=== PATIENT | female | born 1965 | race Caucasian/White ===

== ENCOUNTER 2017-02-27 17:50 | Inpatient (IN) | payer OTHER ==
[~2017-02-27] VITALS: Ht 172.7 cm; Wt 134.0 kg
[2017-02-27 17:52] VITALS: BP 159/77; PULSE 74; RESP 16; TEMP 98.3; O2SAT 98
--- NOTE | 2017-02-27 18:21 | PD ---
HPI Chief Complaint: Neuro Symptoms/ Deficits Time Seen by Provider: 18:15 Travel History International Travel<30 days: No Contact w/Intl Traveler<30days: No Traveled to known affect area: No History of Present Illness HPI 51yo F with PMH of MS and seizure disorder here with worsening gait today. States she uses a walker but worst today. States she woke up with this. Also felt her vision is worst for the last few days. Hard to focus. Denies any fever, chest pain, n/v, focal weakness or numbness. Pt follows with Dr. Leon and called his office and spoke to the nurse and told to come here. Pt also with chronic abdominal pain and has hysterectomy planned for endometriosis and fibroids. PFSH Past Medical History Asthma: Yes GERD: Yes Hiatal Hernia: Yes Neurologic: Yes (MS, epilepsy) Seizures: Yes Sleep Apnea: Yes (cpap) Influenza Vaccination: No ?: Not : 2 Past Surgical History Abdominal Surgery: Yes (umbilical ) Section: Yes Cholecystectomy: Yes Eye Surgery: Yes (lasik and cataracts) Neurologic Surgery: Yes (kyphoplasty) Tonsillectomy: Yes Social History Alcohol Use: No Tobacco Use: No Substance Use: No Allergies-Medications (Allergen,Severity, Reaction): Coded Allergies: No Known Allergies (Unverified , 02/27/17) Reported Meds & Prescriptions Reported Meds & Active Scripts Active Reported Zantac 75 (Ranitidine HCl) 75 Mg Tablet 75 Mg PO DAILY Ventolin Hfa 18 GM Inh (Albuterol Sulfate) 90 Mcg/Act Aer 2 Puff INH Q6H PRN Tecfidera (Dimethyl Fumarate) 240 Mg Cap 240 Mg PO BID Maxalt (Rizatriptan Benzoate) 10 Mg Tab 10 Mg PO DAILY PRN Restasis Opth 0.05% (Cyclosporine Opth 0.05%) 0.05% Emul 1 Drop EACH EYE BID Potassium 99 Mg Tablet 99 Mg PO HS Ditropan (Oxybutynin Chloride) 5 Mg Tab 5 Mg PO Q12HR Oxycodone (Oxycodone HCl) 30 Mg Tab 15-30 Mg PO Q6H PRN Omeprazole 40 Mg Cap 40 Mg PO BID Nabumetone 500 Mg Tab 500 Mg PO BID Metaxalone 800 Mg Tab 800 Mg PO TID Lyrica (Pregabalin) 200 Mg Cap 200 Mg PO BID Lorazepam 0.5 Mg Tab 0.5 Mg PO Q8H PRN Lamictal (Lamotrigine) 150 Mg Tab 150 Mg PO BID Soaszfeebm-Imumqtjxmytaf-Ptrixwlk 50-325-40 Mg Tab 1 Tab PO DAILY PRN Do not exceed 6 tablets/day. Erythromycin Opth Oint 5 Mg/Gm Oint 1 Applic EACH EYE HS Ambien (Zolpidem Tartrate) 5 Mg Tab 5 Mg PO HS Review of Systems Except as stated in HPI: all other systems reviewed are Neg Physical Exam Narrative GENERAL: 51yo F not in distress. SKIN: Focused skin assessment warm/dry. HEAD: Atraumatic. Normocephalic. EYES: Pupils equal and round at 4mm bilaterally. No scleral icterus. No injection or drainage. ENT: No nasal bleeding or discharge. Mucous membranes pink and moist. NECK: Trachea midline. No JVD. CARDIOVASCULAR: Regular rate and rhythm. No murmur appreciated. RESPIRATORY: No accessory muscle use. Clear to auscultation. Breath sounds equal bilaterally. GASTROINTESTINAL: Abdomen soft, non-tender, nondistended. Hepatic and splenic margins not palpable. MUSCULOSKELETAL: No obvious deformities. No clubbing. No cyanosis. No edema. NEUROLOGICAL: Awake and alert. Ataxic gait. EOMI. RLE weakness, unchanged from prior. Sensation equal bilaterally. PSYCHIATRIC: Appropriate mood and affect; insight and judgment normal. Data Data Last Documented VS Vital Signs Date Time Temp Pulse Resp B/P Pulse Ox O2 Delivery O2 Flow Rate FiO2 02/27/17 20:40 61 18 134/67 96 Room Air 02/27/17 17:52 98.3 Orders Methylprednisolone So Succ Inj (Solumedr (02/27/17 19:00) Mri Brain W&W/O Contrast (02/27/17 ) Complete Blood Count With Diff (02/27/17 18:50) Basic Metabolic Panel (Bmp) (02/27/17 18:50) Consult Neurology (02/27/17 ) (Hub Use Only)Inp Phy Cons/Ref (02/27/17 ) Gadodiamide Pf Inj (Omniscan Pf Inj) (02/27/17 20:12) Admit Order (Ed Use Only) (02/27/17 20:53) Labs Laboratory Tests Test 02/27/17 19:05 White Blood Count 2.9 TH/MM3 Red Blood Count 3.81 MIL/MM3 Hemoglobin 10.4 GM/DL Hematocrit 31.3 % Mean Corpuscular Volume 82.0 FL Mean Corpuscular Hemoglobin 27.4 PG Mean Corpuscular Hemoglobin 33.3 % Concent Red Cell Distribution Width 14.2 % Platelet Count 209 TH/MM3 Mean Platelet Volume 7.4 FL Neutrophils (%) (Auto) 69.9 % Lymphocytes (%) (Auto) 5.5 % Monocytes (%) (Auto) 12.2 % Eosinophils (%) (Auto) 12.1 % Basophils (%) (Auto) 0.3 % Neutrophils # (Auto) 2.0 TH/MM3 Lymphocytes # (Auto) 0.2 TH/MM3 Monocytes # (Auto) 0.4 TH/MM3 Eosinophils # (Auto) 0.4 TH/MM3 Basophils # (Auto) 0.0 TH/MM3 CBC Comment DIFF FINAL Differential Comment Sodium Level 143 MEQ/L Potassium Level 3.8 MEQ/L Chloride Level 108 MEQ/L Carbon Dioxide Level 28.4 MEQ/L Anion Gap 7 MEQ/L Blood Urea Nitrogen 8 MG/DL Creatinine 1.06 MG/DL Estimat Glomerular Filtration 55 ML/MIN Rate Random Glucose 104 MG/DL Calcium Level 8.7 MG/DL [facility] Medical Decision Making Medical Screen Exam Complete: Yes Emergency Medical Condition: Yes Differential Diagnosis MS exacerbation vs. CVA vs. intracranial mass Narrative Course 51yo F with symptoms consistent with MS exacerbation. I discussed with Dr. Abdalla who recommends IV methylprednisolone 250mg IV Q6 hours. Ordered first dose. Neurology consult placed. Sign out to next team to follow up labs, MRI and admit Diagnosis Primary Impression: Multiple sclerosis exacerbation Louisa Shaffer DO Feb 27, 2017 18:21
[2017-02-27] MEDS ORDERED: methylPREDNISolone SOD SUCC 125 MG/2 ML VIAL IVP ONE (19:00)
--- NOTE | 2017-02-27 19:06 | PD ---
Physical Exam Date Seen by Provider: Feb 27, 2017 Time Seen by Provider: 19:04 Narrative The patient is a 51-year-old female with a history of MS who presents with ataxia and difficulty with ambulation. The patient was initially evaluated by the previous physician, Dr. Shaffer, please refer to the initial history, physical, diagnostic evaluation, treatment modality plan. The previous physician spoke with the neurologist on-call, Dr. Lemon, who is covering for the patient's neurologist Dr. Leon. He recommends MRI and Solu-Medrol for 3 days divided 250 mg every 6 hours. The patient will be admitted to the medical service. Data Data Last Documented VS Vital Signs Date Time Temp Pulse Resp B/P Pulse Ox O2 Delivery O2 Flow Rate FiO2 02/27/17 20:40 61 18 134/67 96 Room Air 02/27/17 17:52 98.3 Orders Methylprednisolone So Succ Inj (Solumedr (02/27/17 19:00) Mri Brain W&W/O Contrast (02/27/17 ) Complete Blood Count With Diff (02/27/17 18:50) Basic Metabolic Panel (Bmp) (02/27/17 18:50) Consult Neurology (02/27/17 ) (Hub Use Only)Inp Phy Cons/Ref (02/27/17 ) Gadodiamide Pf Inj (Omniscan Pf Inj) (02/27/17 20:12) Admit Order (Ed Use Only) (02/27/17 20:53) Labs Laboratory Tests Test 02/27/17 19:05 White Blood Count 2.9 TH/MM3 Red Blood Count 3.81 MIL/MM3 Hemoglobin 10.4 GM/DL Hematocrit 31.3 % Mean Corpuscular Volume 82.0 FL Mean Corpuscular Hemoglobin 27.4 PG Mean Corpuscular Hemoglobin 33.3 % Concent Red Cell Distribution Width 14.2 % Platelet Count 209 TH/MM3 Mean Platelet Volume 7.4 FL Neutrophils (%) (Auto) 69.9 % Lymphocytes (%) (Auto) 5.5 % Monocytes (%) (Auto) 12.2 % Eosinophils (%) (Auto) 12.1 % Basophils (%) (Auto) 0.3 % Neutrophils # (Auto) 2.0 TH/MM3 Lymphocytes # (Auto) 0.2 TH/MM3 Monocytes # (Auto) 0.4 TH/MM3 Eosinophils # (Auto) 0.4 TH/MM3 Basophils # (Auto) 0.0 TH/MM3 CBC Comment DIFF FINAL Differential Comment Sodium Level 143 MEQ/L Potassium Level 3.8 MEQ/L Chloride Level 108 MEQ/L Carbon Dioxide Level 28.4 MEQ/L Anion Gap 7 MEQ/L Blood Urea Nitrogen 8 MG/DL Creatinine 1.06 MG/DL Estimat Glomerular Filtration 55 ML/MIN Rate Random Glucose 104 MG/DL Calcium Level 8.7 MG/DL [facility] Medical Record Reviewed: Yes Supervised Visit with SHERMAN: No Interpretation(s) Laboratory Tests Test 02/27/17 19:05 White Blood Count 2.9 TH/MM3 Red Blood Count 3.81 MIL/MM3 Hemoglobin 10.4 GM/DL Hematocrit 31.3 % Mean Corpuscular Volume 82.0 FL Mean Corpuscular Hemoglobin 27.4 PG Mean Corpuscular Hemoglobin 33.3 % Concent Red Cell Distribution Width 14.2 % Platelet Count 209 TH/MM3 Mean Platelet Volume 7.4 FL Neutrophils (%) (Auto) 69.9 % Lymphocytes (%) (Auto) 5.5 % Monocytes (%) (Auto) 12.2 % Eosinophils (%) (Auto) 12.1 % Basophils (%) (Auto) 0.3 % Neutrophils # (Auto) 2.0 TH/MM3 Lymphocytes # (Auto) 0.2 TH/MM3 Monocytes # (Auto) 0.4 TH/MM3 Eosinophils # (Auto) 0.4 TH/MM3 Basophils # (Auto) 0.0 TH/MM3 CBC Comment DIFF FINAL Differential Comment Sodium Level 143 MEQ/L Potassium Level 3.8 MEQ/L Chloride Level 108 MEQ/L Carbon Dioxide Level 28.4 MEQ/L Anion Gap 7 MEQ/L Blood Urea Nitrogen 8 MG/DL Creatinine 1.06 MG/DL Estimat Glomerular Filtration 55 ML/MIN Rate Random Glucose 104 MG/DL Calcium Level 8.7 MG/DL Last Impressions Brain MRI 02/27/17 0000 Signed Impressions: Service Date/Time: Monday, February 27, 2017 19:56 - CONCLUSION: 1. Minimal scattered periventricular and subcortical white matter signal abnormalities consistent with small vessel ischemic disease or demyelination. 2. No acute infarct, acute hemorrhage, mass effect, extra axial fluid collection or abnormal enhancing mass lesion. Alfredito Santana MD Differential Diagnosis Differential diagnosis includes MS exacerbation, CVA, brain stem infarct, hemorrhage, hyponatremia, hypocalcemia. Narrative Course The patient was initially evaluated by the previous physician, Dr. Shaffer. Please refer to the initial history, physical, diagnostic evaluation, treatment modality plan. The patient was signed out at 7 PM with MRI and laboratory evaluation pending. The patient will be admitted for MS exacerbation for Solu- Medrol 2050 mg every 6 hours for 3 days, total of 1 g daily for 3 days. MRI was noted. Labs were noted. The on-call medical service was paged for admission. Physician Communication Physician Communication The on-call medical service was paged for admission. I discussed the patient with Dr. Saba who agrees with admission. Diagnosis Primary Impression: Multiple sclerosis exacerbation Admitting Information Admitting Physician Requests: Admit Condition: Stable Ugo Reza MD Feb 27, 2017 19:06
[2017-02-27] MEDS ORDERED: DIME240C PO (19:07)
[2017-02-27] MEDS ORDERED: OMEP40CA2 PO (19:07)
[2017-02-27] MEDS ORDERED: OXYB5TAB10 PO (19:07)
[2017-02-27] MEDS ORDERED: LAMO150 PO (19:07)
[2017-02-27] MEDS ORDERED: MAXA10TA2 PO (19:07)
[2017-02-27] MEDS ORDERED: LYRI200C PO (19:07)
[2017-02-27] MEDS ORDERED: AMBI5TAB PO (19:07)
[2017-02-27] MEDS ORDERED: LORA-373 PO (19:07)
[2017-02-27] MEDS ORDERED: VENTAER INH (19:07)
[2017-02-27] MEDS ORDERED: META1TAB19 PO (19:07)
[2017-02-27] MEDS ORDERED: OXYC30TA PO (19:07)
[2017-02-27] MEDS ORDERED: ZANTTAB11 PO (19:07)
[2017-02-27] MEDS ORDERED: ERYTOIN10 EACH EYE (19:07)
[2017-02-27] MEDS ORDERED: REST0.05 EACH EYE (19:07)
[2017-02-27] MEDS ORDERED: POTA99TA4 PO (19:07)
[2017-02-27] MEDS ORDERED: NABU1TAB37 PO (19:07)
[2017-02-27] MEDS ORDERED: BUTATAB6 PO (19:07)
[2017-02-27 19:25] LABS: BASOPHIL % 0.3 % (0.0-2.0); EOSINOPHIL # 0.4 TH/MM3 (0-0.4); EOSINOPHIL % 12.1 % (0.0-4.0); HEMATOCRIT 31.3 % (35.0-46.0); HEMO FLAGS DIFF FINAL; LYMPH % 5.5 % (9.0-44.0); LYMPHOCYTE # 0.2 TH/MM3 (1.0-4.8); MEAN CORPUSCULAR HEMOGLOBIN 27.4 PG (27.0-34.0); MEAN CORPUSCULAR HGB CONC 33.3 % (32.0-36.0); MONO % 12.2 % (0.0-8.0); NEUT % 69.9 % (16.0-70.0); PLATELET COUNT 209 TH/MM3 (150-450); RED BLOOD COUNT 3.81 MIL/MM3 (4.00-5.30); RED CELL DISTRIBUTION WIDTH 14.2 % (11.6-17.2); WHITE BLOOD COUNT 2.9 TH/MM3 (4.0-11.0)
[2017-02-27 19:46] LABS: BICARBONATE 28.4 MEQ/L (21.0-32.0); POTASSIUM 3.8 MEQ/L (3.5-5.1)
[2017-02-27] MEDS ORDERED: GADODIAMIDE PF 287 MG/ML 20 ML VIAL (for RAD MRI) IV ONE (20:12)
--- NOTE | 2017-02-27 20:38 | RADRPT ---
EXAM DATE/TIME: 02/27/2017 19:56 [facility] COMPARISON: No previous studies available for comparison. INDICATIONS : Multiple sclerosis. Dizziness. Tunnel vision. CONTRAST: 20 cc Omniscan (gadodiamide) IV MEDICAL HISTORY : Multiple sclerosis. Gastroesophageal reflux disease. Seizures. SURGICAL HISTORY : section. Orthopedic. ENCOUNTER: Initial ACUITY: 1 day PAIN SCORE: 0/10 LOCATION: cranial TECHNIQUE: Multiplanar, multisequence MRI of the brain was performed both prior to and following the administrat ion of paramagnetic contrast. FINDINGS: CEREBRUM: The ventricles are normal for age. No evidence of midline shift, mass lesion, hemorrhage or acute in farction. No extraaxial fluid collections are seen. The pituitary gland and suprasellar cistern are normal in configuration. WHITE MATTER: Minimal scattered periventricular and subcortical white matter signal abnormalities are noted consist ent with small vessel ischemic disease or demyelination. POSTERIOR FOSSA: The cerebellum and brainstem are intact. The 4th ventricle is midline. The cerebellopontine angle is unremarkable. The cerebellar tonsils are normal in position. DIFFUSION IMAGING: No focal areas of restricted diffusion are seen. No evidence of acute infarction. EXTRACRANIAL: The visualized portions of the orbits and paranasal sinuses are unremarkable. POST-CONTRAST: No abnormal areas of parenchymal or dural enhancement. No evidence of blood-brain barrier breakdown. CONCLUSION: 1. Minimal scattered periventricular and subcortical white matter signal abnormalities consistent wit h small vessel ischemic disease or demyelination. 2. No acute infarct, acute hemorrhage, mass effect, extra axial fluid collection or abnormal enhancin g mass lesion. Alfredito Santana MD on February 27, 2017 at 20:32 Board Certified Radiologist. This report was verified electronically.
[2017-02-27 20:40] VITALS: BP 134/67; PULSE 61; RESP 18; O2SAT 96
--- NOTE | 2017-02-27 20:59 | HHI.HP ---
[facility]Staff Admission Diagnosis multiple sclerosis exacerbation, ataxia Diagnoses: (1) Multiple sclerosis exacerbation Diagnosis: Principal (2) Generalized pain Diagnosis: Principal (3) Renal insufficiency Diagnosis: Principal (4) HTN (hypertension) Diagnosis: Principal Travel History International Travel<30 Days: No Contact w/Intl Traveler <30 Da: No Traveled to Known Affected Are: No History of Present Illness This is a 51-year-old female with a PMH of Multiple Sclerosis and Seizure Disorder who presented to the ER with complaints of unsteady gait and visual changes x2 days consistent w/ her MS flares. Follows w/ Dr. Leon, called office and was told to go to ER for further evaluation. On arrival, BP 159/77, HR 74, O2 sat 98% on RA, Afebrile. WBC 2.9. Hemoglobin 10.4. Creatinine 1.06 , no previous labs for comparison. MRI Brain with minimal scattered periventricular and subcortical white matter signal abnormalities consistent with small vessel ischemia or demyelinization, no acute findings. Dr. Sussy reno consulted by ER physician, recommended high-dose steroid therapy with Solu- Medrol 250mg IV q6h and will eval in am. Review of Systems Except as stated in HPI: all other systems reviewed are Neg ROS: 14 point review of systems otherwise negative. Past Family Social History Past Medical History PMH: Multiple Sclerosis and Seizure Disorder Past Surgical History PAST SURGICAL HISTORY: Cholecystectomy, Cataract Surgery, Kyphoplasty , Tonsillectomy, Umbilical Surgery Allergies: Coded Allergies: No Known Allergies (Unverified , 02/27/17) Family History PAST FAMILY HISTORY: Reviewed. No h/o DM or CAD Social History PAST SOCIAL HISTORY: Negative for alcohol, tobacco or drugs. Physical Exam Vital Signs Vital Signs Date Time Temp Pulse Resp B/P Pulse Ox O2 Delivery O2 Flow Rate FiO2 02/27/17 20:40 61 18 134/67 96 Room Air 02/27/17 17:52 98.3 74 16 159/77 98 Physical Exam PE: GENERAL: Pleasant middle-aged white female in no acute distress. HEENT: PERRLA, EOMI. No scleral icterus or conjunctival pallor. No lid lag or facial droop. CARDIOVASCULAR: Regular rate and rhythm. No obvious murmurs to auscultation. No chest tenderness to palpation. RESPIRATORY: No obvious rhonchi or wheezing. Clear to auscultation. Breath sounds equal bilaterally. GASTROINTESTINAL: Abdomen soft, non-tender, nondistended. BS normal. MUSCULOSKELETAL: Extremities without clubbing, cyanosis, or edema. No obvious deformities. NEUROLOGICAL: Awake, alert and oriented x4. No focal neurologic deficits. Moving both upper and lower extremities spontaneously. Laboratory Laboratory Tests Test 02/27/17 19:05 White Blood Count 2.9 Red Blood Count 3.81 Hemoglobin 10.4 Hematocrit 31.3 Mean Corpuscular Volume 82.0 Mean Corpuscular Hemoglobin 27.4 Mean Corpuscular Hemoglobin 33.3 Concent Red Cell Distribution Width 14.2 Platelet Count 209 Mean Platelet Volume 7.4 Neutrophils (%) (Auto) 69.9 Lymphocytes (%) (Auto) 5.5 Monocytes (%) (Auto) 12.2 Eosinophils (%) (Auto) 12.1 Basophils (%) (Auto) 0.3 Neutrophils # (Auto) 2.0 Lymphocytes # (Auto) 0.2 Monocytes # (Auto) 0.4 Eosinophils # (Auto) 0.4 Basophils # (Auto) 0.0 CBC Comment DIFF FINAL Differential Comment Sodium Level 143 Potassium Level 3.8 Chloride Level 108 Carbon Dioxide Level 28.4 Anion Gap 7 Blood Urea Nitrogen 8 Creatinine 1.06 Estimat Glomerular Filtration 55 Rate Random Glucose 104 Calcium Level 8.7 Result Diagram: 02/27/17190402/27/171904 Assessment and Plan Problem List: (1) Multiple sclerosis exacerbation ICD Code: G35 Status: Acute (2) Generalized pain ICD Code: R52 Status: Acute (3) Renal insufficiency ICD Code: N28.9 Status: Acute (4) HTN (hypertension) ICD Code: I10 Status: Acute Assessment and Plan A/P: 1. MS: w/ Acute Flare, follows w/ Dr. Leon as outpatient, Dr. Lemon consulted by ER physician, recommended high-dose steroid therapy with Solu- Medrol 250mg IV q6h. MRI Brain scattered periventricular white matter signal abnormalities consistent with small vessel ischemia or demyelination, no acute findings, images reviewed by me. 2. Generalized Pain: secondary to above. Resume home medications, analgesics as needed. 3. Renal Insufficiency: Mild. Creatinine 1.06, no previous labs for comparison, IVF for hydration, repeat labs in am. 4. HTN: BP 150-170's, likely compounded by pain complaints. Will monitor. 5. DVT Prophylaxis: SCD/Teds. 6. Social work for d/c planning as needed. 7. Case discussed w/ ER physician at length. Physician Certification 2 Midnight Certification Type: Admission for Inpatient Services Order for Inpatient Services The services are ordered in accordance with Medicare regulations or non- Medicare payer requirements, as applicable. In the case of services not specified as inpatient-only, they are appropriately provided as inpatient services in accordance with the 2-midnight benchmark. Estimated LOS (days): 2 days is the estimated time the patient will need to remain in the hospital, assuming treatment plan goals are met and no additional complications. Post-Hospital Plan: Not yet determined Shea Saba MD Feb 27, 2017 20:59
[2017-02-27] MEDS ORDERED: ACETAMIN 325 MG/BUTALBITAL 50 MG/CAFFEINE 40 MG TAB PO PRN (21:00)
[2017-02-27] MEDS: DOCUSATE SODIUM 50 MG/SENNA 8.6 MG TAB PO SCH (21:00)
[2017-02-27] MEDS ORDERED: LORazepam 0.5 MG TAB PO PRN (21:00)
[2017-02-27] MEDS ORDERED: BISACODYL 10 MG SUPP RECTAL PRN (21:00)
[2017-02-27] MEDS ORDERED: MAGNESIUM HYDROXIDE SUSP 30 ML CUP PO PRN (21:00)
[2017-02-27] MEDS ORDERED: SODIUM CHLORIDE 0.9% FLUSH 10 ML FLUSH IV FLUSH PRN (21:00)
[2017-02-27] MEDS ORDERED: ALBUTEROL SULFATE 90 MCG/ACT HFA 8 GM INHALER INH PRN (21:00)
[2017-02-27] MEDS: ERYTHROMYCIN 0.5% OPTH OINT 3.5 GM TUBO EACH EYE SCH (21:00)
[2017-02-27] MEDS ORDERED: MORPHINE SULFATE 4 MG/ML INJ IV PRN (21:00)
[2017-02-27] MEDS ORDERED: ACETAMINOPHEN 325 MG TAB PO PRN (21:00)
[2017-02-27] MEDS ORDERED: ONDANSETRON HCL 4 MG/2 ML VIAL IVP PRN (21:00)
[2017-02-27] MEDS ORDERED: SENNOSIDES 8.6 MG TAB PO PRN (21:00)
[2017-02-27] MEDS ORDERED: LACTULOSE SYRUP 20 GM/30 ML CUP PO PRN (21:00)
[2017-02-27] MEDS: SODIUM CHLORIDE 0.9% FLUSH 10 ML FLUSH IV FLUSH SCH (21:05)
[2017-02-27] MEDS: SODIUM CHLOR 0.9% 1000 ML INJ 1,000 ML IV SCH (21:06)
[2017-02-27] MEDS: PREGABALIN 100 MG CAP PO SCH (21:12)
[2017-02-27] MEDS ORDERED: ALBUTEROL SULFATE 90 MCG/ACT HFA 18 GM INHALER INH PRN (21:30)
[2017-02-27 21:51] VITALS: BP 171/94; PULSE 63; RESP 18; TEMP 97.9; O2SAT 99
[2017-02-27] MEDS ORDERED: CYCLOSPORINE OPTH 0.05% EACH EYE SCH (22:00)
[2017-02-27] MEDS ORDERED: DIMETHYL FUMARATE 240 MG PO SCH (22:00)
[2017-02-27] MEDS: PANTOPRAZOLE SOD 40 MG DELAYED RELEASE TAB PO SCH (22:26)
[2017-02-27] MEDS: lamoTRIgine 100 MG TAB PO SCH (22:26)
[2017-02-27] MEDS: OXYBUTYNIN CHLORIDE 5 MG TAB PO SCH (22:26)
[2017-02-27] MEDS: NABUMETONE 500 MG TAB PO SCH (22:30)
[2017-02-27] MEDS: ZOLPIDEM TARTRATE 5 MG TAB PO SCH (23:40)
[2017-02-27] MEDS: METAXALONE 800 MG TAB PO PRN (23:41)
[2017-02-28] MEDS: SODIUM CHLOR 0.9% 1000 ML INJ 1,000 ML IV SCH ×2 (01:18→01:27)
[2017-02-28] MEDS: methylPREDNISolone SOD SUCC 125 MG/2 ML VIAL IV PUSH SCH ×4 (01:18→17:50)
[2017-02-28 04:17] VITALS: BP 142/73; PULSE 60; RESP 16; TEMP 98; O2SAT 95
[2017-02-28] MEDS: METAXALONE 800 MG TAB PO PRN ×2 (06:29→21:27)
[2017-02-28 07:02] LABS: AUTOMATED NEUTROPHIL # 4.4 TH/MM3 (1.8-7.7); EOSINOPHIL % 0.1 % (0.0-4.0); HEMATOCRIT 33.3 % (35.0-46.0); HEMO FLAGS DIFF FINAL; LYMPH % 2.9 % (9.0-44.0); LYMPHOCYTE # 0.1 TH/MM3 (1.0-4.8); MEAN CELL VOLUME 80.5 FL (80.0-100.0); MEAN CORPUSCULAR HEMOGLOBIN 27.2 PG (27.0-34.0); MEAN CORPUSCULAR HGB CONC 33.8 % (32.0-36.0); MONO % 1.2 % (0.0-8.0); NEUT % 95.8 % (16.0-70.0); PLATELET COUNT 217 TH/MM3 (150-450); RED BLOOD COUNT 4.14 MIL/MM3 (4.00-5.30); WHITE BLOOD COUNT 4.6 TH/MM3 (4.0-11.0)
[2017-02-28 07:17] LABS: ALT (GPT) 42 U/L (10-53); ANION GAP 6 MEQ/L (5-15); AST (GOT) 31 U/L (15-37); BICARBONATE 29.2 MEQ/L (21.0-32.0); BLOOD UREA NITROGEN 10 MG/DL (7-18); CHLORIDE 110 MEQ/L (98-107); GLOMERULAR FILTRATION RATE 66 ML/MIN (>89); POTASSIUM 4.3 MEQ/L (3.5-5.1); SODIUM (NA) 145 MEQ/L (136-145)
[2017-02-28 07:20] LABS: ALKALINE PHOSPHATASE 126 U/L (45-117); TOTAL BILIRUBIN ADULT 0.2 MG/DL (0.2-1.0)
[2017-02-28] MEDS ORDERED: GADODIAMIDE PF 287 MG/ML 20 ML VIAL (for RAD MRI) IV ONE (07:40)
[2017-02-28 08:30] VITALS: BP 141/70; PULSE 57; RESP 18; TEMP 98.6; O2SAT 95
[2017-02-28] MEDS: lamoTRIgine 100 MG TAB PO SCH ×2 (08:54→19:47)
[2017-02-28] MEDS: NABUMETONE 500 MG TAB PO SCH ×2 (08:54→19:51)
[2017-02-28] MEDS: PREGABALIN 100 MG CAP PO SCH ×2 (08:55→19:49)
[2017-02-28] MEDS: OXYBUTYNIN CHLORIDE 5 MG TAB PO SCH ×2 (08:56→19:49)
[2017-02-28] MEDS: DOCUSATE SODIUM 50 MG/SENNA 8.6 MG TAB PO SCH ×2 (08:57→19:51)
[2017-02-28] MEDS: PANTOPRAZOLE SOD 40 MG DELAYED RELEASE TAB PO SCH ×2 (09:00→19:48)
[2017-02-28] MEDS: SODIUM CHLORIDE 0.9% FLUSH 10 ML FLUSH IV FLUSH SCH ×2 (09:00→19:50)
[2017-02-28] MEDS ORDERED: METAXALONE 800 MG TAB PO SCH (09:00)
--- NOTE | 2017-02-28 09:07 | PD.CONS ---
History of Present Illness Service Neurology Consult Requested By er Reason for Consult weakness Primary Care Physician Non-Staff History of Present Illness 51-year-old female with a PMH of Multiple Sclerosis and Seizure Disorder? who presented to the ER with complaints of unsteady gait and visual changes x2 days consistent w/ her MS flares. vision has been blurry and legs feel weak. no pain with eye movement. Follows with Dr. Leon in our office. takes tecfidera. has tolerated prednisone in the past. has been using a cane. has chronic pain and anxiety for which she takes ativan and opiods. apparently has had symptoms cince 2003 and has been to . dx was elusive but over the years but firmed up recently by her previous neurologist in [facility]. she is now on disability. lives with her and son. she does not drive. Review of Systems Except as stated in HPI: all other systems reviewed are Neg Past Family Social History Past Medical History PMH: Multiple Sclerosis and Seizure Disorder Past Surgical History PAST SURGICAL HISTORY: Cholecystectomy, Cataract Surgery, Kyphoplasty , Tonsillectomy, Umbilical Surgery Allergies: Coded Allergies: No Known Allergies (Unverified , 02/27/17) Family History PAST FAMILY HISTORY: Reviewed. No h/o DM or CAD Social History PAST SOCIAL HISTORY: Negative for alcohol, tobacco or drugs. Review of Systems All other ROS: ROS reviewed as documented in chart Past Family Social History Allergies: Coded Allergies: No Known Allergies (Unverified , 02/27/17) Active Ordered Medications Current Medications Medications (Trade) Dose Ordered Sig/Dominic Route Start Time Stop Time Status Last Admin Methylprednisolone Sodium Succinate 250 mg 250 mg Q6H IV PUSH 02/28/17 01:00 02/28/17 06:22 (NS 1000 ml Inj) 1,000 ml @ 100 mls/hr Q10H IV 02/27/17 21:00 02/28/17 01:18 (NS Flush) 2 ml UNSCH PRN IV FLUSH 02/27/17 21:00 (NS Flush) 2 ml BID IV FLUSH 02/27/17 21:00 02/27/17 21:05 (Zofran Inj) 4 mg Q6H PRN IVP 02/27/17 21:00 (Tylenol) 650 mg Q6H PRN PO 02/27/17 21:00 (Morphine Inj) 2 mg Q3H PRN IV 02/27/17 21:00 (Roxicodone) 5 mg Q4H PRN PO 02/27/17 21:00 02/28/17 06:28 (Yumiko-Colace) 1 tab BID PO 02/27/17 21:00 02/28/17 08:57 (Milk Of Magnesia Liq) 30 ml Q12H PRN PO 02/27/17 21:00 (Senokot) 17.2 mg Q12H PRN PO 02/27/17 21:00 (Dulcolax Supp) 10 mg DAILY PRN RECTAL 02/27/17 21:00 (Lactulose Liq) 30 ml DAILY PRN PO 02/27/17 21:00 (Fioricet 325-50-40) 1 tab DAILY PRN PO 02/27/17 21:00 (Ilotycin 0.5% Opth Oint) 1 applic HS EACH EYE 02/27/17 21:00 (LaMICtal) 150 mg BID PO 02/27/17 21:00 02/28/17 08:54 (Ativan) 0.5 mg Q8H PRN PO 02/27/17 21:00 (Relafen) 500 mg BID PO 02/27/17 21:00 02/28/17 08:54 (Ditropan) 5 mg Q12HR PO 02/27/17 21:00 02/28/17 08:56 (Lyrica) 200 mg BID PO 02/27/17 21:00 02/28/17 08:55 (Ambien) 5 mg HS PO 02/27/17 21:00 02/27/17 23:40 Patient Own Medication PT OWN MED: Cyclosporine Opth 0.... BID EACH EYE 02/27/17 22:00 Hold Patient Own Medication PT OWN MED: Dimet... BID PO 02/27/17 22:00 Hold (Protonix) 40 mg BID PO 02/27/17 22:00 02/28/17 09:00 (Ventolin Hfa Inh) 2 puff Q6H PRN INH 02/27/17 21:30 (Skelaxin) 800 mg TID PRN PO 02/27/17 23:15 02/28/17 06:29 Exam I&O / VS 02/27/17 02/27/17 02/28/17 15:00 23:00 07:00 Intake Total 509 ml Balance 509 ml Intake IV Total 509 ml # Voids 1 # Bowel Movements 0 Vital Signs Date Time Temp Pulse Resp B/P Pulse Ox O2 Delivery O2 Flow Rate FiO2 02/28/17 08:30 98.6 57 18 141/70 95 02/28/17 07:30 16 02/28/17 04:17 98.0 60 16 142/73 95 02/27/17 21:51 97.9 63 18 171/94 99 02/27/17 20:40 61 18 134/67 96 Room Air 02/27/17 17:52 98.3 74 16 159/77 98 General: Alert and Oriented, No acute distress Eye: EOMI Respiratory: Non-labored respirations Neurologic: Alert, Oriented Psychiatric: Cooperative, Appropriate mood & affect, Normal judgement, Non- suicidal Exam Comments alert, obese, ox 3, follows, no aphasia, eomi, vff grossly full, ou 3-2mm, face sym, mild yen le proximal weakness rt>left but able to lift all 4 ext to gravity , mild increased tone in rt, rt hemisensory, no clonus, planter flexor, gait not assessed 2/2 fall risk, Review/Management Diagnosis/Plan: (1) Multiple sclerosis exacerbation Plan: possible mri brain/c/t spine recs iv solumedrol x 3 days may need inpt rehab p.t. wt loss outpatient f/u after tx (2) HTN (hypertension) Plan: bp control (3) Generalized pain Plan: on chronic opiods (4) Anxiety Plan: on benzo's Problem Qualifiers (1) HTN (hypertension): Qualified Code: I10 - Essential hypertension Elia Lemon MD Feb 28, 2017 09:07
--- NOTE | 2017-02-28 09:17 | HHI.PR ---
Subjective Remarks Follow-up for MS exacerbation Patient stated that her foggy and has improved. She also stated that she is less lethargic. Patient is slow to answer questions. Otherwise she has no other complaints. No focal neurological deficits. Denied any headache. Objective Vitals Vital Signs Date Time Temp Pulse Resp B/P Pulse Ox O2 Delivery O2 Flow Rate FiO2 02/28/17 08:30 98.6 57 18 141/70 95 02/28/17 07:30 16 02/28/17 04:17 98.0 60 16 142/73 95 02/27/17 21:51 97.9 63 18 171/94 99 02/27/17 20:40 61 18 134/67 96 Room Air 02/27/17 17:52 98.3 74 16 159/77 98 I/O 02/27/17 02/27/17 02/27/17 02/28/17 02/28/17 02/28/17 07:00 15:00 23:00 07:00 15:00 23:00 Intake Total 509 ml Balance 509 ml Intake IV Total 509 ml # Voids 1 # Bowel Movements 0 Result Diagram: 02/28/17 0631 02/28/17 0631 Imaging Last Impressions Brain MRI 02/27/17 0000 Signed Impressions: Service Date/Time: Monday, February 27, 2017 19:56 - CONCLUSION: 1. Minimal scattered periventricular and subcortical white matter signal abnormalities consistent with small vessel ischemic disease or demyelination. 2. No acute infarct, acute hemorrhage, mass effect, extra axial fluid collection or abnormal enhancing mass lesion. Alfredito Santana MD Objective Remarks GENERAL: in NAD CARDIOVASCULAR: Regular rate and rhythm without murmurs, gallops, or rubs. RESPIRATORY: Breath sounds equal bilaterally. No accessory muscle use. GASTROINTESTINAL: Abdomen soft, non-tender, nondistended. MUSCULOSKELETAL: No cyanosis, or edema. BACK: Nontender without obvious deformity. No CVA tenderness. NEURO: AAO X 3 but slow to respond. motor and sensation grossly intact. Medications and IVs Current Medications Methylprednisolone Sodium Succinate (SoluMEDROL INJ) 250 mg ONCE ONCE IVP Last administered on 02/27/17t 19:11; Start 02/27/17 at 19:00; Stop 02/27/17 at 19:01; Status DC Gadodiamide (Omniscan Pf Inj) 20 ml STK-MED ONCE IV Last administered on 20:12; Start 02/27/17 at 20:12; Stop 02/27/17 at 20:13; Status DC Methylprednisolone Sodium Succinate 250 mg 250 mg Q6H IV PUSH Last administered on 02/28/17 06:22; Start 02/28/17 at 01:00 Sodium Chloride (NS 1000 ml Inj) 1,000 ml @ 100 mls/hr Q10H IV Last administered on 02/28/17 01:18; Start 02/27/17 at 21:00 Sodium Chloride (NS Flush) 2 ml UNSCH PRN IV FLUSH FLUSH AFTER USING IV ACCESS ; Start 02/27/17 at 21:00 Sodium Chloride (NS Flush) 2 ml BID IV FLUSH Last administered on 02/27/17 21: 05; Start 02/27/17 at 21:00 Ondansetron HCl (Zofran Inj) 4 mg Q6H PRN IVP NAUSEA OR VOMITING; Start at 21:00 Acetaminophen (Tylenol) 650 mg Q6H PRN PO FEVER/PAIN SCALE 1 TO 2; Start at 21:00 Morphine Sulfate (Morphine Inj) 2 mg Q3H PRN IV Pain 6-10; Start 02/27/17 at 21 :00 Oxycodone HCl (Roxicodone) 5 mg Q4H PRN PO PAIN SCALE 3 TO 5 Last administered on 02/28/17 06:28; Start 02/27/17 at 21:00 Senna/Docusate Sodium (Yumiko-Colace) 1 tab BID PO Last administered on 08:57; Start 02/27/17 at 21:00 Magnesium Hydroxide (Milk Of Magnesia Liq) 30 ml Q12H PRN PO MILD - MODERATE CONSTIPATION; Start 02/27/17 at 21:00 Sennosides (Senokot) 17.2 mg Q12H PRN PO MODERATE - SEVERE CONSTIPATION; Start 02/27/17 at 21:00 Bisacodyl (Dulcolax Supp) 10 mg DAILY PRN RECTAL SEVERE CONSITIPATION; Start at 21:00 Lactulose (Lactulose Liq) 30 ml DAILY PRN PO SEVERE CONSITIPATION; Start at 21:00 Albuterol Sulfate (Proair Hfa Inh) 2 puff Q6H PRN INH SHORTNESS OF BREATH; Start 02/27/17 at 21:00; Stop 02/27/17 at 21:21; Status DC Acetaminophen/ Butalbital/ Caffeine (Fioricet 325-50-40) 1 tab DAILY PRN PO HEADACHE; Start 02/27/17 at 21:00 Erythromycin (Ilotycin 0.5% Opth Oint) 1 applic HS EACH EYE ; Start 02/27/17 at 21:00 Lamotrigine (LaMICtal) 150 mg BID PO Last administered on 02/28/17 08:54; Start 02/27/17 at 21:00 Lorazepam (Ativan) 0.5 mg Q8H PRN PO ANXIETY; Start 02/27/17 at 21:00 Metaxalone (Skelaxin) 800 mg TID PO ; Start 02/28/17 at 09:00; Stop 02/28/17 at 09:00; Status DC Nabumetone (Relafen) 500 mg BID PO Last administered on 02/28/17 08:54; Start 02/27/17 at 21:00 Oxybutynin Chloride (Ditropan) 5 mg Q12HR PO Last administered on 02/28/17 08: 56; Start 02/27/17 at 21:00 Pregabalin (Lyrica) 200 mg BID PO Last administered on 02/28/17 08:55; Start 02/27/17 at 21:00 Zolpidem Tartrate (Ambien) 5 mg HS PO Last administered on 02/27/17 23:40; Start 02/27/17 at 21:00 Patient Own Medication PT OWN MED: Cyclosporine Opth 0.... BID EACH EYE ; Start 02/27/17 at 22:00; Status Hold Patient Own Medication PT OWN MED: Dimet... BID PO ; Start 02/27/17 at 22:00; Status Hold Pantoprazole Sodium (Protonix) 40 mg BID PO Last administered on 02/28/17 09: 00; Start 02/27/17 at 22:00 Albuterol Sulfate (Ventolin Hfa Inh) 2 puff Q6H PRN INH SHORTNESS OF BREATH; Start 02/27/17 at 21:30 Metaxalone (Skelaxin) 800 mg TID PRN PO MUSCLE SPASM Last administered on 06:29; Start 02/27/17 at 23:15 Gadodiamide (Omniscan Pf Inj) 20 ml STK-MED ONCE IV Last administered on 07:40; Start 02/28/17 at 07:40; Stop 02/28/17 at 07:41; Status DC A/P Problem List: (1) Multiple sclerosis exacerbation ICD Code: G35 Status: Acute (2) Generalized pain ICD Code: R52 Status: Acute (3) Renal insufficiency ICD Code: N28.9 Status: Acute (4) HTN (hypertension) ICD Code: I10 Status: Acute Assessment and Plan MS exacerbation: follows w/ Dr. Leon as outpatient - Dr. Lemon consulted ff - MRI Brain scattered periventricular white matter signal abnormalities consistent with small vessel ischemia or demyelination, no acute findings. Pending MRI of the cervical thoracic spine report. -Per neurologist continue with Solu-Medrol 250mg IV q6h for 3 days. Generalized Pain: secondary to above. -Improving. home medications resumed. Renal Insufficiency: Mild. Creatinine 1.06. -Improved. GFR 66. -Encourage fluid intake. HTN: BP 150-170's, likely compounded by pain complaints. -Improved. -Continue to monitor. DVT Prophylaxis: SCD/Teds. Discharge Planning Patient will require at least 3 days of IV steroids and possible discharged to SNF. Problem Qualifiers (1) HTN (hypertension): Qualified Code: I10 - Essential hypertension Yvonne Wade MD Feb 28, 2017 09:17
--- NOTE | 2017-02-28 09:28 | RADRPT ---
EXAM DATE/TIME: 02/28/2017 07:19 [facility] COMPARISON: No previous studies available for comparison. INDICATIONS : Mulitple sclerosis. CONTRAST: 20 cc Omniscan (gadodiamide) IV MEDICAL HISTORY : Multiple sclerosis. Gastroesophageal reflux disease. SURGICAL HISTORY : section. Orthopedic. ENCOUNTER: Subsequent ACUITY: 2 day PAIN SCORE: 0/10 LOCATION: [facility] TECHNIQUE: Multiplanar multisequence MRI of the thoracic spine was performed. FINDINGS: VERTEBRA: Normal vertebral body height. Homogeneous marrow signal. There is an old compression fracture at L1. ALIGNMENT: Normal. CORD: Normal position and configuration. POST CONTRAST: No abnormal areas of contrast enhancement seen. T1-T2: Normal. T2-T3: The thecal sac has a normal diameter. No evidence of disc bulge or protrusion. T3-T4: The thecal sac has a normal diameter. No evidence of disc bulge or protrusion. T4-T5: The thecal sac has a normal diameter. No evidence of disc bulge or protrusion. T5-T6: The thecal sac has a normal diameter. No evidence of disc bulge or protrusion. T6-T7: The thecal sac has a normal diameter. No evidence of disc bulge or protrusion. T7-T8: The thecal sac has a normal diameter. No evidence of disc bulge or protrusion. T8-T9: The thecal sac has a normal diameter. No evidence of disc bulge or protrusion. T9-T10: The thecal sac has a normal diameter. No evidence of disc bulge or protrusion. T10-T11: The thecal sac has a normal diameter. No evidence of disc bulge or protrusion. T11-T12: The thecal sac has a normal diameter. No evidence of disc bulge or protrusion. T12-L1: The thecal sac has a normal diameter. No evidence of disc bulge or protrusion. CONCLUSION: 1. Unremarkable MRI of the thoracic spine for patient's age. 2. Old wedge compression fracture L1. 3. No abnormal signal changes in the spinal cord. Nacho Romero MD on February 28, 2017 at 9:22 Board Certified Radiologist. This report was verified electronically.
--- NOTE | 2017-02-28 09:31 | RADRPT ---
EXAM DATE/TIME: 02/28/2017 07:19 [facility] COMPARISON: No previous studies available for comparison. INDICATIONS : Mulitple sclerosis. CONTRAST: 20 cc Omniscan (gadodiamide) IV MEDICAL HISTORY : Gastroesophageal reflux disease. Multiple sclerosis. SURGICAL HISTORY : section. Orthopedic. ENCOUNTER: Subsequent ACUITY: 2 day PAIN SCORE: 0/10 LOCATION: [facility] TECHNIQUE: Multiplanar, multisequence MRI examination of the cervical spine was performed. FINDINGS: VERTEBRAE: Normal vertebral body height. Homogeneous marrow signal. ALIGNMENT: No evidence of subluxation. CORD: Normal configuration and signal. POST FOSSA: The cerebellar tonsils are normal in position. POST-CONTRAST: No abnormal areas of enhancement are seen. C2-C3: The thecal sac has a normal configuration. There is no evidence of disc herniation or spinal canal stenosis. The neural foramina are patent bilaterally. C3-C4: The thecal sac has a normal configuration. There is no evidence of disc herniation or spinal canal s tenosis. The neural foramina are patent bilaterally. C4-C5: The thecal sac has a normal configuration. There is no evidence of disc herniation or spinal canal s tenosis. The neural foramina are patent bilaterally. C5-C6: Mild broad-based and central bulging. The neural foramina are patent bilaterally. C6-C7: The thecal sac has a normal configuration. There is no evidence of disc herniation or spinal canal s tenosis. The neural foramina are patent bilaterally. C7-T1: The thecal sac has a normal configuration. There is no evidence of disc herniation or spinal canal s tenosis. The neural foramina are patent bilaterally. CONCLUSION: 1. Mild broad-based and central bulging at C5-6. 2. Otherwise, unremarkable MR cervical spine for patient's age. Nacho Romero MD on February 28, 2017 at 9:25 Board Certified Radiologist. This report was verified electronically.
[2017-02-28] MEDS: HEPARIN SODIUM - SQ 10,000 UNITS/ML VIAL SQ SCH ×2 (10:21→17:49)
--- NOTE | 2017-02-28 11:45 | EKG ---
Date Performed: 02/27/2017 Time Performed: 18:20:55 PTAGE: 51 years EKG: Sinus rhythm NORMAL ECG NO PREVIOUS TRACING DOCTOR: Beau Troncoso Interpretating Date/Time 02/28/2017 11:44:21
[2017-02-28 12:51] VITALS: BP 145/64; PULSE 57; RESP 18; TEMP 96.1; O2SAT 95
[2017-02-28 16:25] VITALS: BP 134/68; PULSE 54; RESP 18; TEMP 96.3; O2SAT 97
[2017-02-28] MEDS: ACETAMIN 325 MG/BUTALBITAL 50 MG/CAFFEINE 40 MG TAB PO PRN (19:47)
[2017-02-28] MEDS: ERYTHROMYCIN 0.5% OPTH OINT 3.5 GM TUBO EACH EYE SCH (19:50)
[2017-02-28 20:00] VITALS: BP 139/73; PULSE 58; RESP 18; TEMP 97.9; O2SAT 96
[2017-02-28] MEDS: ZOLPIDEM TARTRATE 5 MG TAB PO SCH (21:26)
[2017-03-01] VITALS: BP 133/59; PULSE 62; RESP 20; TEMP 97.5; O2SAT 96
[2017-03-01] MEDS: methylPREDNISolone SOD SUCC 125 MG/2 ML VIAL IV PUSH SCH ×4 (01:25→18:36)
[2017-03-01] MEDS: SODIUM CHLOR 0.9% 1000 ML INJ 1,000 ML IV SCH ×2 (01:27→13:00)
[2017-03-01] MEDS: HEPARIN SODIUM - SQ 10,000 UNITS/ML VIAL SQ SCH ×3 (02:00→18:37)
[2017-03-01 04:00] VITALS: BP 124/62; PULSE 65; RESP 20; TEMP 97.2; O2SAT 96
[2017-03-01] MEDS: METAXALONE 800 MG TAB PO PRN ×2 (05:46→22:11)
[2017-03-01] MEDS: ACETAMIN 325 MG/BUTALBITAL 50 MG/CAFFEINE 40 MG TAB PO PRN ×2 (06:40→18:37)
[2017-03-01 07:50] VITALS: BP 131/66; PULSE 59; RESP 17; TEMP 96.6; O2SAT 96
--- NOTE | 2017-03-01 08:27 | HHI.PR ---
Review/Management Diagnosis/Plan: (1) Multiple sclerosis exacerbation Plan: possible MS;possible exacerbation mri brain/c/t spine- no cord lesion; old l1 wedge fx mri brain- mild white matter dz recs d/c planning tomorrow p.t. wt loss/exercise vit d supplementation; should get dexa scan with her pcp (2) HTN (hypertension) Plan: bp control (3) Generalized pain Plan: on chronic opiods (4) Anxiety Plan: on benzo's Subjective Subjective Comments No acute events reported; feels stronger No headache No chest pain No dyspnea Active Medications Current Medications Medications (Trade) Dose Ordered Sig/Dominic Route Start Time Stop Time Status Last Admin Methylprednisolone Sodium Succinate 250 mg 250 mg Q6H IV PUSH 02/28/17 01:00 03/02/17 09:00 03/01/17 06:40 (NS 1000 ml Inj) 1,000 ml @ 100 mls/hr Q10H IV 02/27/17 21:00 02/28/17 01:18 (NS Flush) 2 ml UNSCH PRN IV FLUSH 02/27/17 21:00 (NS Flush) 2 ml BID IV FLUSH 02/27/17 21:00 02/28/17 19:50 (Zofran Inj) 4 mg Q6H PRN IVP 02/27/17 21:00 (Tylenol) 650 mg Q6H PRN PO 02/27/17 21:00 03/01/17 05:48 (Yumiko-Colace) 1 tab BID PO 02/27/17 21:00 02/28/17 19:51 (Milk Of Magnesia Liq) 30 ml Q12H PRN PO 02/27/17 21:00 (Senokot) 17.2 mg Q12H PRN PO 02/27/17 21:00 (Dulcolax Supp) 10 mg DAILY PRN RECTAL 02/27/17 21:00 (Lactulose Liq) 30 ml DAILY PRN PO 02/27/17 21:00 (Ilotycin 0.5% Opth Oint) 1 applic HS EACH EYE 02/27/17 21:00 02/28/17 19:50 (LaMICtal) 150 mg BID PO 02/27/17 21:00 02/28/17 19:47 (Ativan) 0.5 mg Q8H PRN PO 02/27/17 21:00 (Relafen) 500 mg BID PO 02/27/17 21:00 02/28/17 19:51 (Ditropan) 5 mg Q12HR PO 02/27/17 21:00 02/28/17 19:49 (Lyrica) 200 mg BID PO 02/27/17 21:00 02/28/17 19:49 (Ambien) 5 mg HS PO 02/27/17 21:00 02/28/17 21:26 Patient Own Medication PT OWN MED: Cyclosporine Opth 0.... BID EACH EYE 02/27/17 22:00 Hold Patient Own Medication PT OWN MED: Dimet... BID PO 02/27/17 22:00 Hold (Protonix) 40 mg BID PO 02/27/17 22:00 02/28/17 19:48 (Ventolin Hfa Inh) 2 puff Q6H PRN INH 02/27/17 21:30 (Skelaxin) 800 mg TID PRN PO 02/27/17 23:15 03/01/17 05:46 (Heparin Inj) 5,000 units Q8H SQ 02/28/17 11:00 03/01/17 02:00 (Fioricet 325-50-40) 1 tab BID PRN PO 02/28/17 21:00 03/01/17 06:40 (Roxicodone) 30 mg Q4H PRN PO 02/28/17 17:00 03/01/17 05:45 (Roxicodone) 20 mg Q4H PRN PO 02/28/17 17:00 Allergies Allergies Coded Allergies No Known Allergies (Unverified02/27/17) Review of Systems All other ROS: ROS reviewed as documented in chart Exam I&O / VS 02/28/17 02/28/17 03/01/17 15:00 23:00 07:00 Intake Total 480 ml 240 ml Balance 480 ml 240 ml Intake Oral 480 ml 240 ml # Voids 6 6 2 # Bowel Movements 1 1 0 Vital Signs Date Time Temp Pulse Resp B/P Pulse Ox O2 Delivery O2 Flow Rate FiO2 03/01/17 04:00 97.2 65 20 124/62 96 03/01/17 03:35 18 03/01/17 00:00 97.5 62 20 133/59 96 02/28/17 20:00 97.9 58 18 139/73 96 02/28/17 16:25 96.3 54 18 134/68 97 02/28/17 12:51 96.1 57 18 145/64 95 02/28/17 10:20 15 02/28/17 08:30 98.6 57 18 141/70 95 General: Alert and Oriented, No acute distress Eye: EOMI Respiratory: Non-labored respirations Neurologic: Alert, Oriented Psychiatric: Cooperative, Appropriate mood & affect, Normal judgement, Non- suicidal Exam Comments alert, obese, ox 3, follows, no aphasia, eomi, vff grossly full, ou 3-2mm, face sym, mild yen le proximal weakness rt>left but able to lift all 4 ext to gravity , mild increased tone in rt, rt hemisensory, no clonus, planter flexor, gait not assessed 2/2 fall risk, Problem Qualifiers (1) HTN (hypertension): Qualified Code: I10 - Essential hypertension Elia Lemon MD Mar 01, 2017 08:27
[2017-03-01] MEDS: SODIUM CHLORIDE 0.9% FLUSH 10 ML FLUSH IV FLUSH SCH ×2 (09:00→21:00)
--- NOTE | 2017-03-01 09:59 | HHI.PR ---
Subjective Remarks Follow-up for possible MS flareup Patient has no complaints. She stated that she is feeling better. Patient has improved. Lethargy has also improved. Patient stated that she is waiting to take a shower but she is waiting for the tech. No acute events overnight. Objective Vitals Vital Signs Date Time Temp Pulse Resp B/P Pulse Ox O2 Delivery O2 Flow Rate FiO2 03/01/17 07:50 96.6 59 17 131/66 96 03/01/17 04:00 97.2 65 20 124/62 96 03/01/17 03:35 18 03/01/17 00:00 97.5 62 20 133/59 96 02/28/17 20:00 97.9 58 18 139/73 96 02/28/17 16:25 96.3 54 18 134/68 97 02/28/17 12:51 96.1 57 18 145/64 95 02/28/17 10:20 15 I/O 02/28/17 02/28/17 02/28/17 03/01/17 03/01/17 03/01/17 07:00 15:00 23:00 07:00 15:00 23:00 Intake Total 509 ml 480 ml 240 ml Balance 509 ml 480 ml 240 ml Intake Oral 480 ml 240 ml IV Total 509 ml # Voids 1 6 6 2 # Bowel Movements 0 1 1 0 Result Diagram: 02/28/17 0631 02/28/17 0631 Imaging Last Impressions Thoracic Spine MRI 02/28/17 0000 Signed Impressions: Service Date/Time: Tuesday, February 28, 2017 07:19 - CONCLUSION: 1. Unremarkable MRI of the thoracic spine for patient's age. 2. Old wedge compression fracture L1. 3. No abnormal signal changes in the spinal cord. Nacho Romero MD Cervical Spine MRI 02/28/17 0000 Signed Impressions: Service Date/Time: Tuesday, February 28, 2017 07:19 - CONCLUSION: 1. Mild broad-based and central bulging at C5-6. 2. Otherwise, unremarkable MR cervical spine for patient's age. Nacho Romero MD Brain MRI 02/27/17 0000 Signed Impressions: Service Date/Time: Monday, February 27, 2017 19:56 - CONCLUSION: 1. Minimal scattered periventricular and subcortical white matter signal abnormalities consistent with small vessel ischemic disease or demyelination. 2. No acute infarct, acute hemorrhage, mass effect, extra axial fluid collection or abnormal enhancing mass lesion. Alfredito Santana MD Objective Remarks GENERAL: in NAD CARDIOVASCULAR: Regular rate and rhythm without murmurs, gallops, or rubs. RESPIRATORY: Breath sounds equal bilaterally. No accessory muscle use. GASTROINTESTINAL: Abdomen soft, non-tender, nondistended. MUSCULOSKELETAL: No cyanosis, or edema. BACK: Nontender without obvious deformity. No CVA tenderness. NEURO: AAO X 3 but slow to respond. motor and sensation grossly intact. Medications and IVs Current Medications Methylprednisolone Sodium Succinate (SoluMEDROL INJ) 250 mg ONCE ONCE IVP Last administered on 02/27/17 19:11; Start 02/27/17 at 19:00; Stop 02/27/17 at 19:01; Status DC Gadodiamide (Omniscan Pf Inj) 20 ml STK-MED ONCE IV Last administered on 20:12; Start 02/27/17 at 20:12; Stop 02/27/17 at 20:13; Status DC Methylprednisolone Sodium Succinate 250 mg 250 mg Q6H IV PUSH Last administered on 03/01/17 06:40; Start 02/28/17 at 01:00; Stop 03/02/17 at 09:00 Sodium Chloride (NS 1000 ml Inj) 1,000 ml @ 100 mls/hr Q10H IV Last administered on 02/28/17 01:18; Start 02/27/17 at 21:00 Sodium Chloride (NS Flush) 2 ml UNSCH PRN IV FLUSH FLUSH AFTER USING IV ACCESS ; Start 02/27/17 at 21:00 Sodium Chloride (NS Flush) 2 ml BID IV FLUSH Last administered on 02/28/17 19: 50; Start 02/27/17 at 21:00 Ondansetron HCl (Zofran Inj) 4 mg Q6H PRN IVP NAUSEA OR VOMITING; Start at 21:00 Acetaminophen (Tylenol) 650 mg Q6H PRN PO FEVER Last administered on 03/01/17 05:48; Start 02/27/17 at 21:00 Morphine Sulfate (Morphine Inj) 2 mg Q3H PRN IV Pain 6-10 Last administered on 02/28/17 12:17; Start 02/27/17 at 21:00; Stop 02/28/17 at 14:45; Status DC Oxycodone HCl (Roxicodone) 5 mg Q4H PRN PO PAIN SCALE 3 TO 5 Last administered on 02/28/17 10:21; Start 02/27/17 at 21:00; Stop 02/28/17 at 16:48; Status DC Senna/Docusate Sodium (Yumiko-Colace) 1 tab BID PO Last administered on 19:51; Start 02/27/17 at 21:00 Magnesium Hydroxide (Milk Of Magnesia Liq) 30 ml Q12H PRN PO MILD - MODERATE CONSTIPATION; Start 02/27/17 at 21:00 Sennosides (Senokot) 17.2 mg Q12H PRN PO MODERATE - SEVERE CONSTIPATION; Start 02/27/17 at 21:00 Bisacodyl (Dulcolax Supp) 10 mg DAILY PRN RECTAL SEVERE CONSITIPATION; Start at 21:00 Lactulose (Lactulose Liq) 30 ml DAILY PRN PO SEVERE CONSITIPATION; Start at 21:00 Albuterol Sulfate (Proair Hfa Inh) 2 puff Q6H PRN INH SHORTNESS OF BREATH; Start 02/27/17 at 21:00; Stop 02/27/17 at 21:21; Status DC Acetaminophen/ Butalbital/ Caffeine (Fioricet 325-50-40) 1 tab DAILY PRN PO HEADACHE; Start 02/27/17 at 21:00; Stop 02/28/17 at 16:48; Status DC Erythromycin (Ilotycin 0.5% Opth Oint) 1 applic HS EACH EYE Last administered on 02/28/17 19:50; Start 02/27/17 at 21:00 Lamotrigine (LaMICtal) 150 mg BID PO Last administered on 02/28/17 19:47; Start 02/27/17 at 21:00 Lorazepam (Ativan) 0.5 mg Q8H PRN PO ANXIETY; Start 02/27/17 at 21:00 Metaxalone (Skelaxin) 800 mg TID PO ; Start 02/28/17 at 09:00; Stop 02/28/17 at 09:00; Status DC Nabumetone (Relafen) 500 mg BID PO Last administered on 02/28/17 19:51; Start 02/27/17 at 21:00 Oxybutynin Chloride (Ditropan) 5 mg Q12HR PO Last administered on 02/28/17 19: 49; Start 02/27/17 at 21:00 Pregabalin (Lyrica) 200 mg BID PO Last administered on 02/28/17 19:49; Start 02/27/17 at 21:00 Zolpidem Tartrate (Ambien) 5 mg HS PO Last administered on 02/28/17 21:26; Start 02/27/17 at 21:00 Patient Own Medication PT OWN MED: Cyclosporine Opth 0.... BID EACH EYE ; Start 02/27/17 at 22:00; Status Hold Patient Own Medication PT OWN MED: Dimet... BID PO ; Start 02/27/17 at 22:00; Status Hold Pantoprazole Sodium (Protonix) 40 mg BID PO Last administered on 02/28/17 19: 48; Start 02/27/17 at 22:00 Albuterol Sulfate (Ventolin Hfa Inh) 2 puff Q6H PRN INH SHORTNESS OF BREATH; Start 02/27/17 at 21:30 Metaxalone (Skelaxin) 800 mg TID PRN PO MUSCLE SPASM Last administered on 05:46; Start 02/27/17 at 23:15 Gadodiamide (Omniscan Pf Inj) 20 ml STK-MED ONCE IV Last administered on 07:40; Start 02/28/17 at 07:40; Stop 02/28/17 at 07:41; Status DC Heparin Sodium (Porcine) (Heparin Inj) 5,000 units Q8H SQ Last administered on 03/01/17 02:00; Start 02/28/17 at 11:00 Oxycodone HCl (Roxicodone) 10 mg Q4H PRN PO pain 6-10 Last administered on 02/28 16:32; Start 02/28/17 at 14:45; Stop 02/28/17 at 16:48; Status DC Acetaminophen/ Butalbital/ Caffeine (Fioricet 325-50-40) 1 tab BID PRN PO HEADACHE Last administered on 03/01/17 06:40; Start 02/28/17 at 21:00 Oxycodone HCl (Roxicodone) 30 mg Q4H PRN PO pain 5-10 Last administered on 03/01 05:45; Start 02/28/17 at 17:00 Oxycodone HCl (Roxicodone) 20 mg Q4H PRN PO pain 1-5; Start 02/28/17 at 17:00 A/P Problem List: (1) Multiple sclerosis exacerbation ICD Code: G35 Status: Acute (2) Generalized pain ICD Code: R52 Status: Acute (3) Renal insufficiency ICD Code: N28.9 Status: Acute (4) HTN (hypertension) ICD Code: I10 Status: Acute Assessment and Plan MS exacerbation: follows w/ Dr. Leon as outpatient - Dr. Lemon consulted ff - MRI Brain scattered periventricular white matter signal abnormalities consistent with small vessel ischemia or demyelination, no acute findings. Pending MRI of the cervical thoracic spine report. MRI of the cervical and thoracic spine did not show any lesions. -Per neurologist continue with Solu-Medrol 250mg IV q6h and possible discharge tomorrow. Generalized Pain: secondary to above. -This actually seems to be chronic. Patient is on multiple pain medication. -Continue with home medication. Renal Insufficiency: Mild. Creatinine 1.06. -Improved. GFR 66. -Encourage fluid intake. HTN: BP 150-170's, likely compounded by pain complaints. -Improved. -Continue to monitor. DVT Prophylaxis: SCD/Teds. Discharge Planning Most likely patient will be discharged tomorrow. Clinically she is improving. Problem Qualifiers (1) HTN (hypertension): Qualified Code: I10 - Essential hypertension Yvonne Wade MD Mar 01, 2017 09:59
[2017-03-01] MEDS: lamoTRIgine 100 MG TAB PO SCH ×2 (10:02→21:51)
[2017-03-01] MEDS: OXYBUTYNIN CHLORIDE 5 MG TAB PO SCH ×2 (10:02→21:52)
[2017-03-01] MEDS: PREGABALIN 100 MG CAP PO SCH ×2 (10:02→21:52)
[2017-03-01] MEDS: PANTOPRAZOLE SOD 40 MG DELAYED RELEASE TAB PO SCH (10:03)
[2017-03-01] MEDS: DOCUSATE SODIUM 50 MG/SENNA 8.6 MG TAB PO SCH ×2 (10:03→21:51)
[2017-03-01] MEDS: NABUMETONE 500 MG TAB PO SCH ×2 (10:03→22:10)
[2017-03-01 12:31] VITALS: BP 129/60; PULSE 60; RESP 17; TEMP 96.6; O2SAT 96
[2017-03-01] MEDS ORDERED: FAMOTIDINE 20 MG TAB PO SCH (14:15)
[2017-03-01 15:10] VITALS: BP 135/72; PULSE 74; RESP 18; TEMP 97.2; O2SAT 97
[2017-03-01 21:00] VITALS: BP 173/79; PULSE 61; RESP 17; TEMP 98.6; O2SAT 96
[2017-03-01] MEDS: FAMOTIDINE 20 MG TAB PO SCH (21:52)
[2017-03-01] MEDS: ZOLPIDEM TARTRATE 5 MG TAB PO SCH (22:10)
[2017-03-01] MEDS: ERYTHROMYCIN 0.5% OPTH OINT 3.5 GM TUBO EACH EYE SCH (22:40)
[2017-03-02 00:15] VITALS: BP 138/74; PULSE 60; RESP 19; TEMP 97.9; O2SAT 97
[2017-03-02] MEDS: methylPREDNISolone SOD SUCC 125 MG/2 ML VIAL IV PUSH SCH ×2 (01:20→06:49)
[2017-03-02] MEDS: SODIUM CHLOR 0.9% 1000 ML INJ 1,000 ML IV SCH ×2 (01:22→08:49)
[2017-03-02] MEDS: ACETAMIN 325 MG/BUTALBITAL 50 MG/CAFFEINE 40 MG TAB PO PRN (03:53)
[2017-03-02] MEDS: HEPARIN SODIUM - SQ 10,000 UNITS/ML VIAL SQ SCH ×2 (03:54→11:00)
[2017-03-02 04:15] VITALS: BP 125/64; PULSE 62; RESP 23; TEMP 97.8; O2SAT 98
[2017-03-02 08:06] VITALS: BP 179/79; PULSE 59; RESP 18; TEMP 96.6; O2SAT 97
--- NOTE | 2017-03-02 08:19 | HHI.PR ---
Review/Management Diagnosis/Plan: (1) Multiple sclerosis exacerbation Plan: possible MS; possible exacerbation mri brain/c/t spine- no cord lesion; old l1 wedge fx mri brain- mild white matter dz recs doing well d/c planning today f/u with Dr. Kerr phussein wt loss/exercise vit d supplementation; should get dexa scan with her pcp; old lumbar wedge fx (2) HTN (hypertension) Plan: bp control (3) Generalized pain Plan: on chronic opiods (4) Anxiety Plan: on benzo's Subjective Subjective Comments No acute events reported; feels stronger, wants to ho home today No headache No chest pain No dyspnea Active Medications Current Medications Medications (Trade) Dose Ordered Sig/Dominic Route Start Time Stop Time Status Last Admin Methylprednisolone Sodium Succinate 250 mg 250 mg Q6H IV PUSH 02/28/17 01:00 03/02/17 09:00 03/02/17 06:49 (NS 1000 ml Inj) 1,000 ml @ 100 mls/hr Q10H IV 02/27/17 21:00 03/02/17 01:22 (NS Flush) 2 ml UNSCH PRN IV FLUSH 02/27/17 21:00 (NS Flush) 2 ml BID IV FLUSH 02/27/17 21:00 03/01/17 21:00 (Zofran Inj) 4 mg Q6H PRN IVP 02/27/17 21:00 (Tylenol) 650 mg Q6H PRN PO 02/27/17 21:00 03/01/17 05:48 (Yumiko-Colace) 1 tab BID PO 02/27/17 21:00 03/01/17 21:51 (Milk Of Magnesia Liq) 30 ml Q12H PRN PO 02/27/17 21:00 (Senokot) 17.2 mg Q12H PRN PO 02/27/17 21:00 (Dulcolax Supp) 10 mg DAILY PRN RECTAL 02/27/17 21:00 (Lactulose Liq) 30 ml DAILY PRN PO 02/27/17 21:00 (Ilotycin 0.5% Opth Oint) 1 applic HS EACH EYE 02/27/17 21:00 03/01/17 22:40 (LaMICtal) 150 mg BID PO 02/27/17 21:00 03/01/17 21:51 (Ativan) 0.5 mg Q8H PRN PO 02/27/17 21:00 (Relafen) 500 mg BID PO 02/27/17 21:00 03/01/17 22:10 (Ditropan) 5 mg Q12HR PO 02/27/17 21:00 03/01/17 21:52 (Lyrica) 200 mg BID PO 02/27/17 21:00 03/01/17 21:52 (Ambien) 5 mg HS PO 02/27/17 21:00 03/01/17 22:10 Patient Own Medication PT OWN MED: Cyclosporine Opth 0.... BID EACH EYE 02/27/17 22:00 Hold Patient Own Medication PT OWN MED: Dimet... BID PO 02/27/17 22:00 Hold (Ventolin Hfa Inh) 2 puff Q6H PRN INH 02/27/17 21:30 (Skelaxin) 800 mg TID PRN PO 02/27/17 23:15 03/01/17 22:11 (Heparin Inj) 5,000 units Q8H SQ 02/28/17 11:00 03/02/17 03:54 (Fioricet 325-50-40) 1 tab BID PRN PO 02/28/17 21:00 03/02/17 03:53 (Roxicodone) 30 mg Q4H PRN PO 02/28/17 17:00 03/02/17 06:48 (Roxicodone) 20 mg Q4H PRN PO 02/28/17 17:00 03/01/17 21:51 (Pepcid) 20 mg Q12HR PO 03/01/17 21:00 03/01/17 21:52 Allergies Allergies Coded Allergies No Known Allergies (Unverified02/27/17) Review of Systems All other ROS: ROS reviewed as documented in chart Exam I&O / VS 03/01/17 03/01/17 03/02/17 15:00 23:00 07:00 Intake Total 720 ml 500 ml 1900 ml Balance 720 ml 500 ml 1900 ml Intake Oral 720 ml 500 ml 700 ml IV Total 1200 ml # Voids 5 1 3 # Bowel Movements 0 0 0 Vital Signs Date Time Temp Pulse Resp B/P Pulse Ox O2 Delivery O2 Flow Rate FiO2 03/02/17 08:06 96.6 59 18 179/79 97 03/02/17 04:15 97.8 62 23 125/64 98 03/02/17 00:15 97.9 60 19 138/74 97 03/01/17 21:00 98.6 61 17 173/79 96 03/01/17 15:10 97.2 74 18 135/72 97 03/01/17 12:31 96.6 60 17 129/60 96 03/01/17 11:02 18 03/01/17 11:02 18 General: Alert and Oriented, No acute distress Eye: EOMI Respiratory: Non-labored respirations Neurologic: Alert, Oriented Psychiatric: Cooperative, Appropriate mood & affect, Normal judgement, Non- suicidal Exam Comments alert, obese, ox 3, sitting up eating breakfast, no aphasia, eomi, vff grossly full, ou 3-2mm, face sym, dougherty to gravity >4+/5, mild increased tone in rt, rt hemisensory, Problem Qualifiers (1) HTN (hypertension): Qualified Code: I10 - Essential hypertension Elia Lemon MD Mar 02, 2017 08:19
[2017-03-02] MEDS: lamoTRIgine 100 MG TAB PO SCH (08:50)
[2017-03-02] MEDS: OXYBUTYNIN CHLORIDE 5 MG TAB PO SCH (08:51)
[2017-03-02] MEDS: NABUMETONE 500 MG TAB PO SCH (08:51)
[2017-03-02] MEDS: DOCUSATE SODIUM 50 MG/SENNA 8.6 MG TAB PO SCH (08:51)
[2017-03-02] MEDS: SODIUM CHLORIDE 0.9% FLUSH 10 ML FLUSH IV FLUSH SCH (08:51)
[2017-03-02] MEDS: PREGABALIN 100 MG CAP PO SCH (08:51)
[2017-03-02] MEDS: FAMOTIDINE 20 MG TAB PO SCH (08:51)
--- NOTE | 2017-03-02 09:40 | HHI.DCPOC ---
Discharge Care Plan Diagnosis: (1) Multiple sclerosis exacerbation Goals to Promote Your Health * To prevent worsening of your condition and complications * To maintain your health at the optimal level Directions to Meet Your Goals Take your medications as prescribed Follow your dietary instruction Follow activity as directed Keep your appointments as scheduled Take your immunizations and boosters as scheduled If your symptoms worsen call your PCP, if no PCP go to Urgent Care Center or Emergency Room Smoking is Dangerous to Your Health. Avoid second hand smoke Call the 24-hour hour crisis hotline for domestic abuse at Yvonne Wade MD Mar 02, 2017 09:40
--- NOTE | 2017-03-02 09:40 | HHI.DS ---
Discharge Summary Admission Date Feb 27, 2017 at 20:55 Discharge Date: Mar 02, 2017 Admitting Diagnosis multiple sclerosis exacerbation, ataxia (1) Multiple sclerosis exacerbation ICD Code: G35 Diagnosis: Principal (2) Generalized pain ICD Code: R52 Diagnosis: Secondary (3) Renal insufficiency ICD Code: N28.9 Diagnosis: Principal (4) HTN (hypertension) ICD Code: I10 Diagnosis: Secondary Procedures see hospital course Brief History - From Admission This is a 51-year-old female with a PMH of Multiple Sclerosis and Seizure Disorder who presented to the ER with complaints of unsteady gait and visual changes x2 days consistent w/ her MS flares. Follows w/ Dr. Leon, called office and was told to go to ER for further evaluation. On arrival, BP 159/77, HR 74, O2 sat 98% on RA, Afebrile. WBC 2.9. Hemoglobin 10.4. Creatinine 1.06 , no previous labs for comparison. MRI Brain with minimal scattered periventricular and subcortical white matter signal abnormalities consistent with small vessel ischemia or demyelinization, no acute findings. Dr. Sussy reno consulted by ER physician, recommended high-dose steroid therapy with Solu- Medrol 250mg IV q6h and will eval in am. CBC/BMP: 02/28/17 0631 02/28/17 0631 Significant Findings Laboratory Tests Test 02/27/17 02/28/17 19:05 06:31 White Blood Count 2.9 TH/MM3 (4.0-11.0) Red Blood Count 3.81 MIL/MM3 (4.00-5.30) Hemoglobin 10.4 GM/DL 11.3 GM/DL (11.6-15.3) (11.6-15.3) Hematocrit 31.3 % 33.3 % (35.0-46.0) (35.0-46.0) Lymphocytes (%) (Auto) 5.5 % 2.9 % (9.0-44.0) (9.0-44.0) Monocytes (%) (Auto) 12.2 % (0.0-8.0) Eosinophils (%) (Auto) 12.1 % (0.0-4.0) Lymphocytes # (Auto) 0.2 TH/MM3 0.1 TH/MM3 (1.0-4.8) (1.0-4.8) Chloride Level 108 MEQ/L 110 MEQ/L (98-107) (98-107) Creatinine 1.06 MG/DL (0.50-1.00) Estimat Glomerular Filtration 55 ML/MIN (>89) 66 ML/MIN (>89) Rate Neutrophils (%) (Auto) 95.8 % (16.0-70.0) Random Glucose 176 MG/DL (74-106) Alkaline Phosphatase 126 U/L (45-117) Imaging Last Impressions Thoracic Spine MRI 02/28/17 0000 Signed Impressions: Service Date/Time: Tuesday, February 28, 2017 07:19 - CONCLUSION: 1. Unremarkable MRI of the thoracic spine for patient's age. 2. Old wedge compression fracture L1. 3. No abnormal signal changes in the spinal cord. Nacho Romero MD Cervical Spine MRI 02/28/17 0000 Signed Impressions: Service Date/Time: Tuesday, February 28, 2017 07:19 - CONCLUSION: 1. Mild broad-based and central bulging at C5-6. 2. Otherwise, unremarkable MR cervical spine for patient's age. Nacho Romero MD Brain MRI 02/27/17 0000 Signed Impressions: Service Date/Time: Monday, February 27, 2017 19:56 - CONCLUSION: 1. Minimal scattered periventricular and subcortical white matter signal abnormalities consistent with small vessel ischemic disease or demyelination. 2. No acute infarct, acute hemorrhage, mass effect, extra axial fluid collection or abnormal enhancing mass lesion. Alfredito Santana MD PE at Discharge GENERAL: in NAD CARDIOVASCULAR: Regular rate and rhythm without murmurs, gallops, or rubs. RESPIRATORY: Breath sounds equal bilaterally. No accessory muscle use. GASTROINTESTINAL: Abdomen soft, non-tender, nondistended. MUSCULOSKELETAL: No cyanosis, or edema. BACK: Nontender without obvious deformity. No CVA tenderness. NEURO: AAO X 3 but slow to respond. motor and sensation grossly intact. Pt update on day of discharge Follow-up for MS exacerbation Patient has no complaints she feels like she is back to her baseline. Denies any fatigue or visual changes. Denied any focal neurological deficits. Hospital Course 51-year-old with history of MS complaining of fatigue and visual changes MS exacerbation: follows w/ Dr. Leon as outpatient - MRI Brain scattered periventricular white matter signal abnormalities consistent with small vessel ischemia or demyelination, no acute findings. MRI of the cervical and thoracic spine did not show any lesions. -Neurologist was consulted and patient was put on Solu-Medrol 250mg IV q6h during her hospital course. Symptoms resolved by the time of discharge. -Dr. Lemon also recommended a DEXA scan as outpatient. Generalized Pain: -This seems to be more for chronic pain. Her pain regimen was confirmed by her pharmacist and resumed during her hospital course. Renal Insufficiency: Mild. Creatinine 1.06. -Improved with IV fluids.. HTN: BP 150-170's, likely compounded by pain complaints. -Improved. -Continue to monitor. Pt Condition on Discharge: Good Discharge Disposition: Discharge Home Discharge Time: <= 30 minutes Discharge Instructions DIET: Follow Instructions for: Heart Healthy Diet Activities you can perform: Regular-No Restrictions Follow up Referrals: Neurology - 2 Weeks with Beau Leon MD PCP Follow-up - 1 Week New Medications: Bedside Commode (Bedside Commode) 1 Mis Mis 1 EA .ROUTE DIRECTED #1 EA Walker with Front Wheels (Walker with Front Wheels) 1 Mis Mis 1 EA .ROUTE DIRECTED #1 Ref 0 EA Continued Medications: Albuterol 18 GM Inh (Ventolin Hfa 18 GM Inh) 90 Mcg/Act Aer 2 PUFF INH Q6H PRN SHORTNESS OF BREATH #1 Ref 0 INHALER Dfsldaoddv-Hayfxxwtlckpk-Tailhclg (Xnngbvfnrp-Cmsxblusjeobb-Teseytoy) 50-325-40 Mg Tab 1 TAB PO DAILY Do not exceed 6 tablets/day. PRN HEADACHE Ref 0 TAB Cyclosporine Opth 0.05% (Restasis Opth 0.05%) 0.05% Emul 1 DROP EACH EYE BID Dry Eye #1 Ref 0 BOX Dimethyl Fumarate (Tecfidera) 240 Mg Cap 240 MG PO BID Multiple sclerosis #60 Ref 0 CAP Erythromycin Opth Oint (Erythromycin Opth Oint) 5 Mg/Gm Oint 1 APPLIC EACH EYE HS Infection #1 Ref 0 TUBE Lamotrigine (Lamictal) 150 Mg Tab 150 MG PO BID Control Seizures #60 Ref 0 TAB Lorazepam (Lorazepam) 0.5 Mg Tab 0.5 MG PO Q8H PRN ANXIETY Ref 0 TAB Metaxalone (Metaxalone) 800 Mg Tab 800 MG PO TID Muscle Spasm Ref 0 TAB Nabumetone (Nabumetone) 500 Mg Tab 500 MG PO BID Pain-Inflammation #60 Ref 0 TAB Omeprazole (Omeprazole) 40 Mg Cap 40 MG PO BID #30 Ref 0 CAP Oxybutynin (Ditropan) 5 Mg Tab 5 MG PO Q12HR Urinary Symptom Managemen #60 Ref 0 TAB Oxycodone (Oxycodone) 30 Mg Tab 15-30 MG PO Q6H PRN PAIN Ref 0 TAB Potassium (Potassium) 99 Mg Tablet 99 MG PO HS Pregabalin (Lyrica) 200 Mg Cap 200 MG PO BID #60 Ref 0 CAP Ranitidine HCl (Zantac 75) 75 Mg Tablet 75 MG PO DAILY Rizatriptan (Maxalt) 10 Mg Tab 10 MG PO DAILY PRN MIGRAINE HEADACHE Zolpidem (Ambien) 5 Mg Tab 5 MG PO HS INSOMNIA Ref 0 TAB Yvonne Wade MD Mar 02, 2017 09:40
[2017-03-02] MEDS ORDERED: WALKER WHEELS/F1 MIS (12:09)
[2017-03-02] MEDS ORDERED: BEDSIDE COMMODE1 MI1 (12:09)
== END 2017-03-02 12:00 | disposition home or self-care (01) | DRG 59 ==
LOC: NEPC 17:50 → NEDA 20:55 → N05A 21:39
PROVIDERS: ADMIT Family Medicine; ATTEND Family Medicine
DX: G35 Multiple sclerosis (principal); Z68.41 Body mass index [BMI] 40.0-44.9, adult; I10 Essential (primary) hypertension; G47.30 Sleep apnea, unspecified; G40.909 Epilepsy, unspecified, not intractable, without status epilepticus; J45.909 Unspecified asthma, uncomplicated; K21.9 Gastro-esophageal reflux disease without esophagitis; N28.9 Disorder of kidney and ureter, unspecified; F41.9 Anxiety disorder, unspecified; G89.29 Other chronic pain; E66.9 Obesity, unspecified
CPT/HCPCS: 70553; 72156; 72157; 80048; 80053; 85025; 93005; 96374; A9579; J1644; J2270; J2930; J7030